=== PATIENT | male | born 1935 | race Caucasian/White ===

== ENCOUNTER 2017-11-19 17:48 | Inpatient (IN) | payer MEDICARE ==
[~2017-11-19] VITALS: Ht 175.3 cm; Wt 97.6 kg
[2017-11-19] MEDS ORDERED: SODIUM CHLORIDE 0.9% 500ML 500 ML IV STA (18:11)
[2017-11-19] MEDS ORDERED: ONDANSETRON HCL INJ 2 MG/ML VIAL IV STA (18:11)
[2017-11-19 18:54] LABS: BASOPHILS # (AUTO) 0.1 (0.0-0.1); BASOPHILS % 0.6 % (0.0-1.0); EOSINOPHILS # (AUTO) 0.4 (0.0-0.4); EOSINOPHILS % 2.7 % (0.0-6.0); HEMOGLOBIN 16.2 g/dL (14.0-18.0); LYMPHOCYTES % 13.1 % (18.0-39.1); MEAN CORPUSCULAR HEMOGLOBIN 30.6 pg (28-32); MEAN CORPUSCULAR HGB CONC 34.5 g/dL (31-35); MEAN CORPUSCULAR VOLUME 88.7 fL (81-99); MONOCYTES % 6.3 % (4.4-11.3); NEUTROPHILS # (AUTO) 11.8 (2.1-6.9); PLATELET COUNT 282 x10e3/uL (140-360); RED CELL DISTRIBUTION WIDTH 13.2 % (11.7-14.4)
[2017-11-19] MEDS ORDERED: DIATRIZOATE MEGL/DIATRIZOA SOD 30 ML BTL PO ONE (19:01)
--- NOTE | 2017-11-19 19:08 | Diagnostic Imaging Report ---
EXAMINATION: CHEST SINGLE (PORTABLE) INDICATION: Abdominal pain. Weakness COMPARISON: October 31, 2011 FINDINGS: TUBES and LINES: None. LUNGS: Lungs are well inflated. Mild chronic appearing changes in the lungs. There is no evidence of pneumonia or pulmonary edema. PLEURA: No pleural effusion or pneumothorax. HEART AND MEDIASTINUM: Calcification at the aortic arch. Heart normal in size. BONES AND SOFT TISSUES: No acute osseous lesion. Soft tissues are unremarkable. UPPER ABDOMEN: No free air under the diaphragm. IMPRESSION: No acute thoracic abnormality. Signed by: Dr. Quirino Escobar M.D. on 11/19/2017 7:04 PM
--- NOTE | 2017-11-19 19:14 | Diagnostic Imaging Report ---
Exam: Frontal radiograph of the abdomen History: Abdominal pain. Weakness. Findings: Numerous distended air-filled loops of bowel in the central abdomen worrisome for small bowel obstruction. Flowing syndesmophytes about the visualized portion of the spine and apparent partial ankylosis of the sacroiliac joints could be due to ankylosing spondylitis. No suspicious calcifications. Impression: Findings worrisome for small bowel obstruction. Findings discussed with Dr. Sellers by Dr. Escobar on November 19, 2017 at 7:10 PM Signed by: Dr. Quirino Escobar M.D. on 11/19/2017 7:10 PM
[2017-11-19 19:18] LABS: ALBUMIN 4.2 g/dL (3.5-5.0); ALBUMIN/GLOBULIN RATIO 1.2 (0.8-2.0); ANION GAP 20.4 mmol/L (8-16); CALCIUM 9.7 mg/dL (8.4-10.2); CREATININE, SERUM 2.25 mg/dL (0.72-1.25); POTASSIUM 4.4 mmol/L (3.5-5.1)
[2017-11-19 19:24] LABS: CREATINE KINASE MB 4.2 ng/mL (0-5.0)
[2017-11-19 19:27] LABS: BILIRUBIN,URINE NEGATIVE (NEGATIVE); COLOR,URINE YELLOW (YELLOW); KETONES,URINE NEGATIVE (NEGATIVE); LEUKOCYTE ESTERASE ,URINE NEGATIVE (NEGATIVE); NITRITE,URINE NEGATIVE (NEGATIVE); URINE UROBILINOGEN 0.2 mg/dL (0.2 - 1)
[2017-11-19 19:34] LABS: CLARITY,URINE SL CLOUDY (CLEAR); PROTEIN,URINE DIPSTICK TRACE (NEGATIVE)
[2017-11-19 19:44] LABS: EPITHELIAL CELLS,URINE FEW /LPF
--- NOTE | 2017-11-19 19:57 | Diagnostic Imaging Report ---
EXAM: CT Abdomen and Pelvis WITHOUT contrast INDICATION: Abdominal pain. Small bowel obstruction COMPARISON: Radiographs from the same day TECHNIQUE: Abdomen and pelvis were scanned utilizing a multidetector helical scanner from the lung base to the pubic symphysis without administration of IV contrast. Absence of intravenous contrast decreases sensitivity for detection of focal lesions and vascular pathology. Coronal and sagittal reformations were obtained. Routine protocol was performed. IV CONTRAST: None. ORAL CONTRAST: Water RADIATION DOSE: Total DLP: 848.07 mGy*cm Estimated effective dose: (DLP x 0.015 x size factor) mSv COMPLICATIONS: None FINDINGS: LINES and TUBES: None. LOWER THORAX: Moderate size hiatal hernia. HEPATOBILIARY: Hypodensities in the liver could be due to cysts. Several of these are too small to characterize. No biliary ductal dilation. GALLBLADDER: Possible small gallstone in the gallbladder neck region best seen on axial series 2 image 22. No wall thickening. SPLEEN: No splenomegaly. PANCREAS: No focal masses or ductal dilatation. ADRENALS: No adrenal nodules KIDNEYS/URETERS: No hydronephrosis. Several too small to characterize hypodensities in the kidneys could be due to small cysts. Bilateral perinephric fat stranding likely due to chronic medical renal disease. No renal stones. GI TRACT: Distended stomach and numerous distended fluid and air filled loops of small bowel most pronounced proximally consistent with small bowel obstruction. No definite lead point is seen. The colon is decompressed. Radiodense material is seen in the stomach and proximal small bowel. PELVIC ORGANS/BLADDER: Unremarkable. LYMPH NODES: No lymphadenopathy. VESSELS: Scattered vascular calcification. PERITONEUM / RETROPERITONEUM: No free air or fluid. BONES: Chronic appearing deformity involving the intervertebral disc and endplates at the L2/L3 level could be due to a prior infection. Flowing syndesmophytes in the spine and partial ankylosis of the sacroiliac joints could be due to ankylosing spondylitis. SOFT TISSUES: Unremarkable. IMPRESSION: 1. Distended stomach and numerous distended fluid and air filled loops of small bowel most pronounced proximally consistent with small bowel obstruction. No definite lead point is seen. The colon is decompressed Signed by: Dr. Quirino Escobar M.D. on 11/19/2017 7:54 PM
[2017-11-19] MEDS ORDERED: CEFOXITIN 1GM/ DEXTROSE 50ML ML IV SCH (20:15)
[2017-11-19] MEDS ORDERED: ONDANSETRON HCL INJ 2 MG/ML VIAL IV PRN (20:15)
[2017-11-19] MEDS ORDERED: LIDOCAINE VISC 2% SOLN 15 ML UDC ONE (20:31)
[2017-11-19] MEDS ORDERED: BENZOCAINE/TETRACAINE/BUTAMBEN AERO SPRAY 56 GM CAN ONE (20:31)
[2017-11-19] MEDS: SODIUM CHLORIDE 0.9% 1000ML 1,000 ML IV SCH (20:44)
[2017-11-19] MEDS: METRONIDAZOLE 500MG/NS 100ML 100 ML IV SCH (20:44)
--- OUTSIDE RECORDS SUMMARY | 2017-11-19 21:20 | XMS REPORT ---
Author Author [facility] Address Unknown Phone Unavailable Care Team Providers Care Manager Payment Name Role Phone MAGALI MORALES Unavailable Unavailable Problems This patient has no known problems. Allergies, Adverse Reactions, Alerts This patient has no known allergies or adverse reactions. Medications This patient has no known medications. Results Test Description Test Time Test Comments Text Results Atomic Results Result Comments CT ABDOMEN/PELVIS WO [place] [address] Patient Name: JOANNA CARTER MR #: [id number] : 1935 Age/Sex: 82/M Req #: [id number] Adm Physician: Ordered by: EARL ANDRADE ANALYST [employer]HEM[employer]OSPECTING Report #: [id number] Location: ER Room/Bed: Procedure: [id number] CT/CT ABDOMEN/PELVIS WO Exam Date: 11/19/17 Exam Time: 1924 REPORT STATUS: Signed EXAM: CT Abdomen and Pelvis WITHOUT contrast INDICATION: Abdominal pain. Small bowel obstruction COMPARISON: Radiographs from the same day TECHNIQUE: Abdomen and pelvis were scanned utilizing a multidetector helical scanner from the lung base to the pubic symphysis without administration of IV contrast. Absence of intravenous contrast decreases sensitivity for detection of focal lesions and vascular pathology. Coronal and sagittal reformations were obtained. Routine protocol was performed. IV CONTRAST: None. ORAL CONTRAST: Water RADIATION DOSE: Total DLP: 848.07 mGy*cm Estimated effective dose: (DLP x 0.015 x size factor) mSv COMPLICATIONS: None FINDINGS: LINES and TUBES: None. LOWER THORAX: Moderate size hiatal hernia. HEPATOBILIARY: Hypodensities in the liver could be due to cysts. Several of these are too small to characterize. No biliary ductal dilation. GALLBLADDER: Possible small gallstone in the gallbladder neck region best seen on axial series 2 image 22. No wall thickening. SPLEEN: No splenomegaly. PANCREAS: No focal masses or ductal dilatation. ADRENALS: No adrenal nodules KIDNEYS/URETERS: No hydronephrosis. Several too small to characterize hypodensities in the kidneys could be due to small cysts. Bilateral perinephric fat stranding likely due to chronic medical renal disease. No renal stones. GI TRACT: Distended stomach and numerous distended fluid and air filled loops of small bowel most pronounced proximally consistent with small bowel obstruction. No definite lead point is seen. The colon is decompressed. Radiodense material is seen in the stomach and proximal small bowel. PELVIC ORGANS/BLADDER: Unremarkable. LYMPH NODES: No lymphadenopathy. VESSELS: Scattered vascular calcification. PERITONEUM / RETROPERITONEUM: No free air or fluid. BONES: Chronic appearing deformity involving the intervertebral disc and endplates at the L2/ L3 level could be due to a prior infection. Flowing syndesmophytes in the spine and partial ankylosis of the sacroiliac joints could be due to ankylosing spondylitis. SOFT TISSUES: Unremarkable. IMPRESSION: 1. Distended stomach and numerous distended fluid and air filled loops of small bowel most pronounced proximally consistent with small bowel obstruction. No definite lead point is seen. The colon is decompressed Signed by: Dr. Quirino Escobar M.D. on 11/19/2017 7:54 PM Dictated By: QUIRINO ESCOBAR MD, MD 53 Transcribed By: GABRIELA on 11/19/171953 COPY TO: EARL ANDRADE NP CHEST SINGLE (PORTABLE) [place] [address] Patient Name: JOANNA CARTER MR #: [id number] : 1935 Age/Sex: 82/M Req #: [id number] Adm Physician: Ordered by: EARL ANDRADE ANALYST [employer]HEM[employer] PROSPECTING Report #: [id number] Location: ER Room/Bed: Procedure: [id number] DX/CHEST SINGLE (PORTABLE) Exam Date: 11/19/17 Exam Time: 1845 REPORT STATUS: Signed EXAMINATION: CHEST SINGLE (PORTABLE) INDICATION: Abdominal pain. Weakness COMPARISON: October 31, 2011 FINDINGS: TUBES and LINES: None. LUNGS: Lungs are well inflated. Mild chronic appearing changes in the lungs. There is no evidence of pneumonia or pulmonary edema. PLEURA: No pleural effusion or pneumothorax. HEART AND MEDIASTINUM: Calcification at the aortic arch. Heart normal in size. BONES AND SOFT TISSUES: No acute osseous lesion. Soft tissues are unremarkable. UPPER ABDOMEN: No free air under the diaphragm. IMPRESSION: No acute thoracic abnormality. Signed by: Dr. Quirino Escobar M.D. on 11/19/2017 7:04 PM Dictated By: QUIRINO ESCOBAR MD, MD 03 Transcribed By: GABRIELA on 11/19/171903 COPY TO: EARL ANDRADE ANALYST GEOCHEMICAL PROSPECTING [facility] ([place] [address] Patient Name: JOANNA CARTER MR #: [id number] : 1935 Age/Sex: 82/M Req #: [id number] Adm Physician: Ordered by: EARL ANDRADE ANALYST [employer]HEM[employer] PROSPECTING Report #: [id number] Location: ER Room/Bed: Procedure: [id number] DX/ABDOMEN-1VIEW (KUB) Exam Date: 11/19/17 Exam Time: 1845 REPORT STATUS: Signed Exam: Frontal radiograph of the abdomen History: Abdominal pain. Weakness. Findings : Numerous distended air-filled loops of bowel in the central abdomen worrisome for small bowel obstruction. Flowing syndesmophytes about the visualized portion of the spine and apparent partial ankylosis of the sacroiliac joints could be due to ankylosing spondylitis. No suspicious calcifications. Impression: Findings worrisome for small bowel obstruction. Findings discussed with Dr. Sellers by Dr. Escobar on November 19, 2017 at 7:10 PM Signed by: Dr. Quirino Escobar M.D. on 11/19 7:10 PM Dictated By: QUIRINO ESCOBAR MD, MD 09 Transcribed By: GABRIELA on 11/19/171909 COPY TO: EARL ANDRADE NP
[2017-11-19 22:15] VITALS: BP 168/84
[2017-11-19] MEDS: MORPHINE SULFATE 2 MG/ML SYR IV PRN (23:00)
[2017-11-19] MEDS: CEFOXITIN SOD 1 GM VIAL IV SCH (23:23)
[2017-11-20] MEDS: METRONIDAZOLE 500MG/NS 100ML 100 ML IV SCH ×4 (00:07→18:01)
[2017-11-20] MEDS ORDERED: ADVAIR 250-501 EACH INH (00:19)
[2017-11-20] MEDS ORDERED: TRIAMTERENE-HCTZ1 EA PO (00:19)
[2017-11-20] MEDS ORDERED: SIMVASTATIN40 MG PO (00:19)
[2017-11-20] MEDS ORDERED: ASPIR 8181 MG PO (00:19)
[2017-11-20] MEDS ORDERED: FENOFIBRATE160 MG PO (00:19)
[2017-11-20] MEDS ORDERED: LUMIGAN2.5 M1 OP (00:19)
[2017-11-20] MEDS ORDERED: LISINOPRIL10 MG PO (00:19)
[2017-11-20 04:00] VITALS: BP 152/67
[2017-11-20] MEDS: CEFOXITIN SOD 1 GM VIAL IV SCH ×3 (05:17→21:33)
[2017-11-20] MEDS: SODIUM CHLORIDE 0.9% 1000ML 1,000 ML IV SCH ×3 (05:17→18:01)
[2017-11-20] MEDS ORDERED: CHLORASEPTIC SPRAY 177 ML BTL MM PRN (06:15)
[2017-11-20 06:32] LABS: BASOPHILS % 0.3 % (0.0-1.0); HEMOGLOBIN 15.1 g/dL (14.0-18.0); LYMPHOCYTES # (AUTO) 0.9 (1.0-3.2); LYMPHOCYTES % 8.1 % (18.0-39.1); MEAN CORPUSCULAR HEMOGLOBIN 30.6 pg (28-32); MEAN CORPUSCULAR HGB CONC 34.3 g/dL (31-35); MEAN CORPUSCULAR VOLUME 89.2 fL (81-99); MONOCYTES # (AUTO) 0.8 (0.2-0.8); MONOCYTES % 6.7 % (4.4-11.3); NEUTROPHILS # (AUTO) 9.5 (2.1-6.9); NEUTROPHILS % 84.6 % (38.7-80.0); PLATELET COUNT 242 x10e3/uL (140-360); RED BLOOD COUNT 4.93 x10e6/uL (4.3-5.7); RED CELL DISTRIBUTION WIDTH 13.2 % (11.7-14.4)
[2017-11-20] MEDS: PANTOPRAZOLE 40 MG 10ML VIAL IV SCH (06:50)
[2017-11-20 06:53] LABS: ALBUMIN 3.4 g/dL (3.5-5.0); ALBUMIN/GLOBULIN RATIO 1.2 (0.8-2.0); ANION GAP 17.1 mmol/L (8-16); CALCIUM 9.1 mg/dL (8.4-10.2); CREATININE, SERUM 2.51 mg/dL (0.72-1.25); POTASSIUM 4.1 mmol/L (3.5-5.1)
--- NOTE | 2017-11-20 07:40 | Consultation ---
DATE OF CONSULTATION: November 20, 2017 The patient is an 82-year-old male who presents with complaints of abdominal pain, which started yesterday. Says the pain was diffuse, crampy pain. Had some nausea. Yesterday, had a normal bowel movement yesterday, but nothing since. He is not passing any flatus since yesterday. He came to the emergency room where evaluation with CT of the abdomen and pelvis and abdominal x-ray revealed findings most suggestive of small-bowel obstruction. Also, found to have a question of one gallstone seen. Patient also had associated back pain. He has not had similar pains in the past. He has not had previous abdominal surgery. Says the pain is somewhat less today. PAST MEDICAL HISTORY: Significant for hypertension, hypercholesterolemia, previous TIA. He has had previous carpal tunnel surgery, left knee surgery, sinus surgery, and TURP. ALLERGIES: HE HAS NO KNOWN ALLERGIES. FAMILY HISTORY: Noncontributory. SOCIAL HISTORY: The patient does not smoke cigarettes or drink alcohol. REVIEW OF SYSTEMS: Is as stated above, otherwise was negative. He has had no fever. No weight loss. PHYSICAL EXAMINATION GENERAL: The patient is awake, alert and in no distress. VITALS: Normal. He is not tachycardic. Blood pressure is normal. HEENT: Reveals no scleral icterus. NECK: Has no masses. LUNGS: Equal breath sounds are clear bilaterally. CARDIAC: Regular rate and rhythm with no murmur. ABDOMEN: Distended with mild diffuse tenderness with no signs of peritonitis. No mass. EXTREMITIES: Have no edema. NEUROLOGIC: Grossly intact. LAB TESTS: The white blood count on arrival was 15.3. Repeat is 11.2. Hemoglobin and hematocrit are normal. Chemistries on arrival revealed elevated BUN of 30, creatinine 2.25, bicarbonate level was normal. Amylase and lipase are normal. Liver function tests are essentially normal. ASSESSMENT: This is an 82-year-old male with findings most suggestive of intestinal obstruction. There are no signs of ischemic bowel at this time. No signs of peritonitis. At this point, recommend keeping the patient n.p.o. and on IV fluids with a nasogastric tube in place. Abdominal x-rays to be repeated. If his symptoms do not resolve, he may require surgery. This was explained to the patient. Thank you for asking me to see Mr. Munoz. Job#: [id number] RI
[2017-11-20 09:58] VITALS: BP 135/62
[2017-11-20 10:46] VITALS: BP 135/62
--- NOTE | 2017-11-20 10:55 | Diagnostic Imaging Report ---
PROCEDURE:ABDOMEN COMP INCL UPR OR DECUB TECHNIQUE:Supine and uprightviews of the abdomen INDICATION:Small bowel obstruction COMPARISON:Patients [facility], CT, CT ABDOMEN/PELVIS WO, 11/19/2017, 19:31. FINDINGS:A nasogastric tube has been placed with its tip below the diaphragm. Air-fluid levels with dilated loops of proximal small bowel are again noted. Relative paucity of large bowel gas. No free air. CONCLUSION:Continued evidence of small bowel obstruction. Anibal Gaston D.O. Dictated by: Anibal Gaston D.O. on 11/20/2017 at 10:55 Electronically approved by: Anibal Gaston D.O. on 11/20/2017 at 10:55
--- NOTE | 2017-11-20 14:39 | History and Physical ---
PRIMARY CARE PROVIDER: Dr. Bashir Peng. CHIEF COMPLAINT: Abdominal pain, nausea, vomiting. HISTORY OF PRESENT ILLNESS: Mr. Munoz is an 82-year-old gentleman who presents with 2 days of abdominal pain, distention, nausea, vomiting. REVIEW OF SYSTEMS: He denies fever, chills or weight loss. He denies sinus congestion or sore throat. He denies chest pain or palpitations. He denies shortness of breath, wheezing or cough. He has abdominal pain with nausea and vomiting. He denies diarrhea. He may be a little constipated. He denies dysuria or flank pain. He denies rash or pruritus. He denies joint pain or swelling. He denies bleeding or bruising. He denies headache, vertigo or loss of consciousness. He denies depression, agitation, homicidal or suicidal ideation. PAST MEDICAL HISTORY: Significant for longstanding hypertension, hypercholesterolemia, glaucoma. He has had a previous TIA. He also has COPD. His medications include: Aspirin 81 mg daily. Advair Diskus twice daily. Lisinopril 30 mg daily. Zocor 40 mg at bedtime. Dyazide 37.5/25 mg daily. Fenofibrate 160 mg daily. Lumigan drops for glaucoma three times a day. He has a history carpal tunnel surgery, he has had left knee arthroscopy, and he has had a transurethral resection of the prostate. ALLERGIES: HE HAS NO KNOWN DRUG ALLERGIES. FAMILY HISTORY: Remarkable for hypertension. SOCIAL HISTORY: The patient is . [place]ian is his primary language. He does not smoke, drink or use illegal drugs, and he is generally independently functioning. PHYSICAL EXAM: PSYCHIATRIC: He is alert and oriented x3 with normal mood and affect. CONSTITUTIONAL: He has a normal body habitus. Is in no acute distress. VITAL SIGNS: Blood pressure 135/62. Pulse 86 and regular. Respiratory rate 18. O2 sat 93% on room air. Temperature 98.6. HEENT: His head is atraumatic. His eyes are anicteric. Ears and nares are without erythema or discharge. He does have a nasogastric tube in place. His oropharynx is clear. NECK: Is supple with no mass or thyromegaly. LYMPHATIC SYSTEM: He has no palpable cervical, axillary or inguinal adenopathy. CARDIOVASCULAR: His heart has a regular rate and rhythm without murmur or extra heart sound. He has no carotid bruit. He has no peripheral edema. He has palpable dorsal pedal pulses. RESPIRATORY: Lungs are clear to auscultation and percussion with normal respiratory effort. GASTROINTESTINAL: His abdomen is soft. It is mildly distended. It has some decreased bowel sounds. There is no hepatosplenomegaly. There is some mild diffuse tenderness without rebound or guarding. CUTANEOUS: His skin is warm and dry to the touch with no rash or skin breakdown. MUSCULOSKELETAL: His joints are in normal alignment without erythema or swelling. He has no calf tenderness. NEUROLOGIC: Exam is nonfocal with intact cranial nerves and no motor or sensory deficits. DIAGNOSTIC STUDIES: Chest x-ray shows no acute disease. KUB shows a small-bowel obstruction. CT scan the abdomen confirms that with dilated proximal small-bowel loops, unable to identify a clear transition point but the colon is decompressed. Repeat KUB this morning is unchanged, still shows evidence of small-bowel obstruction. His UA is clear. His BNP 50.5. CBC shows a white count of 15.31 with 77% neutrophils, 13% lymphocytes. Hemoglobin 16.2, hematocrit 47.0 and platelet count today 282,000. His chemistry profile shows normal electrolytes. CO2 23. Creatinine 2.25, BUN 30 for a GFR of 28. Glucose 117. Calcium 9.7. His amylase is 93. Lipase is 10. Transaminases, bilirubin, alk phos are normal. His UA is clear. IMPRESSION AND PLAN: 1. Small-bowel obstruction. The patient will be kept n.p.o. He has a nasogastric tube in place for decompression. He will be getting IV fluids, serial abdominal exams and x-rays. Surgery has been consulted and is following the case, and the patient is on IV Mefoxin empirically. 2. 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 There are no previous labs to establish baseline renal function. After overnight hydration, there was no improvement with his GFR; so, presumably this is chronic kidney disease stage 4. As the patient is n.p.o., will use IV hydralazine and IV enalapril as needed every 4 hours to control his blood pressure while he is n.p.o. 3. Acute kidney injury versus chronic kidney disease stage 4. The patient is getting IV fluid hydration. Will monitor renal function and volume status. 4. For prophylaxis, the patient is on Lovenox for DVT prophylaxis and Protonix for GI prophylaxis. Job#: [id number] EV
[2017-11-20 17:50] VITALS: BP 136/63
[2017-11-20] MEDS: ENOXAPARIN 30 MG/0.3 ML SYR SC SCH (18:01)
[2017-11-20 20:55] VITALS: BP 150/67
[2017-11-20 21:11] VITALS: BP 147/68
[2017-11-20] MEDS: BIMATOPROST(OPTH) 2.5 ML BOTTLE OP SCH (21:33)
[2017-11-21] VITALS (7 sets, daily range): BP systolic 140–167; BP diastolic 59–77
--- NOTE | 2017-11-21 06:02 | Diagnostic Imaging Report ---
EXAM: ABDOMEN COMP INCL UPR or DECUB, supine and erect INDICATION: Small bowel obstruction COMPARISON: AP view of the chest fibula were 12/05/2018 FINDINGS: LINES/TUBES: None BOWEL PATTERN: Persistent dilated loops of small bowel with air-fluid levels. Air is seen in the colon and rectum. SOFT TISSUES: No abnormal calcifications. LUNG BASES: Bibasilar atelectasis BONES: No acute findings. IMPRESSION: Persistent partial small bowel obstruction. Signed by: Dr. Saniya Silverio M.D. on 11/21/2017 5:58 AM
[2017-11-21] MEDS: METRONIDAZOLE 500MG/NS 100ML 100 ML IV SCH ×4 (06:29→17:50)
[2017-11-21] MEDS: SODIUM CHLORIDE 0.9% 1000ML 1,000 ML IV SCH ×4 (06:38→20:53)
[2017-11-21] MEDS: CEFOXITIN SOD 1 GM VIAL IV SCH ×3 (06:38→21:33)
[2017-11-21 07:12] LABS: HEMATOCRIT 40.3 % (38.2-49.6); HEMOGLOBIN 13.1 g/dL (14.0-18.0); MEAN CORPUSCULAR HEMOGLOBIN 29.8 pg (28-32); MEAN CORPUSCULAR HGB CONC 32.5 g/dL (31-35); MEAN CORPUSCULAR VOLUME 91.8 fL (81-99); PLATELET COUNT 217 x10e3/uL (140-360); RED BLOOD COUNT 4.39 x10e6/uL (4.3-5.7); RED CELL DISTRIBUTION WIDTH 13.4 % (11.7-14.4)
[2017-11-21 07:30] LABS: ANION GAP 13.6 mmol/L (8-16); CALCIUM 8.4 mg/dL (8.4-10.2); CREATININE, SERUM 2.38 mg/dL (0.72-1.25); MAGNESIUM 1.5 MG/DL (1.3-2.1); PHOSPHORUS 1.9 MG/DL (2.3-4.7); POTASSIUM 3.6 mmol/L (3.5-5.1)
[2017-11-21 07:45] LABS: THYROID STIMULATING HORMONE 0.903 uIU/mL (0.350-4.940)
[2017-11-21] MEDS: PANTOPRAZOLE 40 MG 10ML VIAL IV SCH (08:38)
[2017-11-21] MEDS: ENOXAPARIN 30 MG/0.3 ML SYR SC SCH (16:41)
[2017-11-21] MEDS: BIMATOPROST(OPTH) 2.5 ML BOTTLE OP SCH (20:34)
[2017-11-22] MEDS: MORPHINE SULFATE 2 MG/ML SYR IV PRN (01:09)
[2017-11-22 01:17] VITALS: BP 165/68
[2017-11-22] MEDS: HYDRALAZINE HCL 20 MG/ML VIAL IV PRN ×3 (05:05→22:40)
[2017-11-22] MEDS: CEFOXITIN SOD 1 GM VIAL IV SCH ×3 (05:37→22:58)
[2017-11-22 06:04] VITALS: BP 180/92
[2017-11-22 06:04] LABS: BASOPHILS % 0.7 % (0.0-1.0); EOSINOPHILS # (AUTO) 0.2 (0.0-0.4); EOSINOPHILS % 5.1 % (0.0-6.0); HEMATOCRIT 39.6 % (38.2-49.6); HEMOGLOBIN 13.1 g/dL (14.0-18.0); LYMPHOCYTES # (AUTO) 1.2 (1.0-3.2); LYMPHOCYTES % 27.3 % (18.0-39.1); MEAN CORPUSCULAR HEMOGLOBIN 29.8 pg (28-32); MEAN CORPUSCULAR HGB CONC 33.1 g/dL (31-35); MEAN CORPUSCULAR VOLUME 90.2 fL (81-99); MONOCYTES # (AUTO) 0.6 (0.2-0.8); MONOCYTES % 13.5 % (4.4-11.3); NEUTROPHILS # (AUTO) 2.4 (2.1-6.9); PLATELET COUNT 221 x10e3/uL (140-360); RED BLOOD COUNT 4.39 x10e6/uL (4.3-5.7); RED CELL DISTRIBUTION WIDTH 13.2 % (11.7-14.4)
[2017-11-22 06:30] LABS: ANION GAP 14.6 mmol/L (8-16); CALCIUM 8.4 mg/dL (8.4-10.2); CREATININE, SERUM 1.97 mg/dL (0.72-1.25); MAGNESIUM 1.7 MG/DL (1.3-2.1); POTASSIUM 3.6 mmol/L (3.5-5.1)
[2017-11-22 08:00] VITALS: BP 164/75
[2017-11-22] MEDS: PANTOPRAZOLE 40 MG 10ML VIAL IV SCH (08:13)
[2017-11-22] MEDS: SODIUM CHLORIDE 0.9% 1000ML 1,000 ML IV SCH ×4 (08:13→22:58)
[2017-11-22] MEDS: AMLODIPINE BESYLATE 10 MG TAB PO SCH (11:15)
[2017-11-22 12:00] VITALS: BP 195/93
--- NOTE | 2017-11-22 12:32 | Diagnostic Imaging Report ---
PROCEDURE:ABDOMEN COMP INCL UPR OR DECUB TECHNIQUE:Flat and erect abdomen INDICATION:Small bowel obstruction COMPARISON:11/21/2017 FINDINGS:There is an NG tube with its tip below the diaphragm. No change in the degree of dilatation of the small bowel loops. There are small bowel air-fluid levels present. Again noted is air within the rectum. No free air. CONCLUSION:Persistent small bowel obstruction. Anibal Gaston D.O. Dictated by: Anibal Gaston D.O. on 11/22/2017 at 12:32 Electronically approved by: Anibal Gaston D.O. on 11/22/2017 at 12:32
[2017-11-22 13:57] VITALS: BP 178/79
[2017-11-22] MEDS ORDERED: MORPHINE SULFATE INJ 10 MG/ML ONE (14:51)
[2017-11-22] MEDS ORDERED: FENTANYL CITRATE/PF 100MCG/2 ML INJ ONE (14:51)
[2017-11-22] MEDS ORDERED: MIDAZOLAM HCL 2 MG/2 ML VIAL ONE (14:51)
[2017-11-22] MEDS ORDERED: SODIUM CHLORIDE 0.9% 50ML 50 ML ONE (14:52)
[2017-11-22] MEDS ORDERED: SODIUM CHLORIDE 0.9% INJ 10 ML VIAL ONE (14:52)
[2017-11-22] MEDS ORDERED: BUPIVACAINE HCL 0.5% 10ML MPF VIAL INJ ONE (16:25)
[2017-11-22] MEDS ORDERED: MORPHINE SULFATE 2 MG/ML SYR IV PRN ×2 (17:00→17:15)
[2017-11-22] MEDS ORDERED: ONDANSETRON HCL INJ 2 MG/ML VIAL IV PRN (17:00)
[2017-11-22] MEDS: ENOXAPARIN 30 MG/0.3 ML SYR SC SCH (17:00)
[2017-11-22] MEDS ORDERED: SUGAMMADEX SODIUM 200 MG/2 ML VIAL IV ONE (17:35)
[2017-11-22] MEDS ORDERED: ONDANSETRON HCL INJ 2 MG/ML VIAL ONE (17:56)
[2017-11-22] MEDS ORDERED: ROCURONIUM BROMIDE 10 MG/ML 5ML VIAL ONE (17:56)
[2017-11-22] MEDS ORDERED: SUCCINYLCHOLINE 200 MG/10 ML SYR ONE (17:56)
[2017-11-22] MEDS ORDERED: NEOSTIGMINE 5 MG/5ML SYR ONE (17:56)
[2017-11-22] MEDS ORDERED: GLYCOPYRROLATE INJ 1MG/ 5 ML SYR ONE (17:56)
[2017-11-22] MEDS ORDERED: PROPOFOL IV EMULSION 10 MG/ML 20 ML VIAL ONE (17:56)
[2017-11-22] MEDS ORDERED: LIDOCAINE HCL 2% LOCAL INJ 5 ML SDV VIAL INJ ONE (17:56)
[2017-11-22] MEDS ORDERED: DEXAMETHASONE SOD PHOS INJ 4 MG/ML VIAL ONE (17:56)
[2017-11-22] MEDS ORDERED: DESFLURANE 240 ML BTL INH ONE (17:56)
--- NOTE | 2017-11-22 18:08 | Operative Report ---
DATE OF PROCEDURE: November 22, 2017 PREOPERATIVE DIAGNOSIS: Small bowel obstruction. POSTOPERATIVE DIAGNOSIS: Small bowel obstruction. PROCEDURES PERFORMED: 1. Diagnostic laparoscopy. 2. Laparoscopic lysis of adhesions. 3. Release of small bowel obstruction. PHOTOLITHOGRAPHIC STRIPPER: None. ANESTHESIA: General endotracheal. INDICATIONS AND FINDINGS: The patient is an 82-year-old male admitted to the hospital with abdominal pain with nausea and vomiting. Workup revealed small bowel obstruction. Surgery based on a dilated proximal bowel collapsed distal bowel with a single adhesive band causing the obstruction. Bowel all appeared viable. There was no mass seen. No evidence of tumor. TECHNIQUE: After adequate general endotracheal anesthesia with the patient in the supine position, the abdomen was prepped and draped in sterile fashion with David solution. Skin in the umbilicus was infiltrated with 1/2 percent Marcaine. Incision made in the umbilicus. Abdominal wall was elevated and Veress needle was introduced. Pneumoperitoneum was then created. A 10 mm trocar and cannula was then passed through the umbilical wound. Laparoscopic camera was introduced. Initial laparoscopy revealed dilated small bowel. The colon appeared normal. There was no free fluid seen. A 5 mm trocar and cannula was placed in the left upper quadrant and a 5 mm trocar and cannula placed in the left lower quadrant. The small bowel was identified proximally where it was dilated. It was then followed distally and there was a transition point. There was omentum adherent over this area causing obstruction. At the omentum was mobilized it was freed and adhesive band divided freeing the small bowel completely. Distal bowel was noted to be collapsed. Distal bowel was followed all the way to the cecum which appeared normal. The peritoneal cavity was irrigated with saline and inspected for hemostasis which was seen to be adequate. Instruments and cannulas were then removed. Pneumoperitoneum was evacuated. Wounds were then closed. Fascia in the umbilical closed with 0 Vicryl. Skin to all wounds closed with luisa. Sterile dressings applied to each wound. Patient tolerated the procedure well. Estimated blood loss was 5 mL. There were no complications. All counts were correct. Patient was taken to the recovery room in satisfactory condition. Job#: [id number] cc:GENESIS CERDA MD
[2017-11-22 20:00] VITALS: BP 163/73
[2017-11-22] MEDS ORDERED: LORAZEPAM 1 MG TAB PO PRN (21:00)
[2017-11-22] MEDS: SODIUM CHLORIDE 0.9% 250ML IRRIG IR SCH (22:00)
[2017-11-22] MEDS: BIMATOPROST(OPTH) 2.5 ML BOTTLE OP SCH (22:00)
[2017-11-23] VITALS (7 sets, daily range): BP systolic 144–170; BP diastolic 68–79
[2017-11-23] MEDS: LORAZEPAM INJ 2 MG/ML VIAL IV PRN ×2 (01:27→21:36)
[2017-11-23] MEDS: SODIUM CHLORIDE 0.9% 250ML IRRIG IR SCH ×6 (02:00→21:27)
[2017-11-23] MEDS: SODIUM CHLORIDE 0.9% 1000ML 1,000 ML IV SCH (05:54)
[2017-11-23 06:07] LABS: BASOPHILS % 0.4 % (0.0-1.0); HEMATOCRIT 39.2 % (38.2-49.6); HEMOGLOBIN 13.2 g/dL (14.0-18.0); LYMPHOCYTES # (AUTO) 0.8 (1.0-3.2); LYMPHOCYTES % 14.2 % (18.0-39.1); MEAN CORPUSCULAR HEMOGLOBIN 30.4 pg (28-32); MEAN CORPUSCULAR HGB CONC 33.7 g/dL (31-35); MEAN CORPUSCULAR VOLUME 90.3 fL (81-99); MONOCYTES # (AUTO) 0.7 (0.2-0.8); MONOCYTES % 13.3 % (4.4-11.3); NEUTROPHILS # (AUTO) 3.7 (2.1-6.9); PLATELET COUNT 272 x10e3/uL (140-360); RED BLOOD COUNT 4.34 x10e6/uL (4.3-5.7); RED CELL DISTRIBUTION WIDTH 13.2 % (11.7-14.4)
[2017-11-23] MEDS: CEFOXITIN SOD 1 GM VIAL IV SCH ×3 (06:22→21:28)
[2017-11-23 06:32] LABS: ANION GAP 16.2 mmol/L (8-16); CALCIUM 8.5 mg/dL (8.4-10.2); CREATININE, SERUM 1.72 mg/dL (0.72-1.25); POTASSIUM 4.2 mmol/L (3.5-5.1)
[2017-11-23] MEDS: AMLODIPINE BESYLATE 10 MG TAB PO SCH (08:37)
[2017-11-23] MEDS: PANTOPRAZOLE 40 MG 10ML VIAL IV SCH (08:37)
[2017-11-23] MEDS ORDERED: DEXTROSE 5%/0.45% SOD CHL 1,000 ML IV ONE (09:45)
[2017-11-23] MEDS: HYDRALAZINE HCL 20 MG/ML VIAL IV PRN (12:47)
[2017-11-23] MEDS: ENOXAPARIN 30 MG/0.3 ML SYR SC SCH (16:45)
[2017-11-23] MEDS: BIMATOPROST(OPTH) 2.5 ML BOTTLE OP SCH (21:50)
[2017-11-24] VITALS (7 sets, daily range): BP systolic 167–189; BP diastolic 70–91
[2017-11-24] MEDS: HYDRALAZINE HCL 20 MG/ML VIAL IV PRN ×3 (00:39→16:34)
[2017-11-24] MEDS: SODIUM CHLORIDE 0.9% 250ML IRRIG IR SCH ×7 (02:00→21:27)
[2017-11-24] MEDS: CEFOXITIN SOD 1 GM VIAL IV SCH ×3 (06:18→21:26)
[2017-11-24 06:51] LABS: BASOPHILS # (AUTO) 0.1 (0.0-0.1); BASOPHILS % 0.9 % (0.0-1.0); EOSINOPHILS # (AUTO) 0.2 (0.0-0.4); EOSINOPHILS % 2.7 % (0.0-6.0); HEMATOCRIT 39.1 % (38.2-49.6); HEMOGLOBIN 13.1 g/dL (14.0-18.0); LYMPHOCYTES # (AUTO) 1.3 (1.0-3.2); LYMPHOCYTES % 18.7 % (18.0-39.1); MEAN CORPUSCULAR HEMOGLOBIN 30.3 pg (28-32); MEAN CORPUSCULAR HGB CONC 33.5 g/dL (31-35); MEAN CORPUSCULAR VOLUME 90.5 fL (81-99); MONOCYTES # (AUTO) 0.9 (0.2-0.8); MONOCYTES % 13.4 % (4.4-11.3); NEUTROPHILS # (AUTO) 4.2 (2.1-6.9); NEUTROPHILS % 62.8 % (38.7-80.0); PLATELET COUNT 292 x10e3/uL (140-360); RED BLOOD COUNT 4.32 x10e6/uL (4.3-5.7); RED CELL DISTRIBUTION WIDTH 13.3 % (11.7-14.4)
[2017-11-24 07:15] LABS: ANION GAP 13.4 mmol/L (8-16); CALCIUM 8.7 mg/dL (8.4-10.2); CREATININE, SERUM 1.54 mg/dL (0.72-1.25); POTASSIUM 3.4 mmol/L (3.5-5.1)
[2017-11-24] MEDS: PANTOPRAZOLE 40 MG 10ML VIAL IV SCH (08:23)
[2017-11-24] MEDS: AMLODIPINE BESYLATE 10 MG TAB PO SCH (08:23)
[2017-11-24] MEDS ORDERED: ONDANSETRON HCL INJ 2 MG/ML VIAL IV PRN (10:15)
[2017-11-24] MEDS ORDERED: POTASSIUM CHLORIDE 20MEQ/100ML 100 ML IV ONE (10:15)
[2017-11-24] MEDS: NIFEDIPINE CR 30 MG TAB PO SCH (11:00)
[2017-11-24] MEDS ORDERED: POTASSIUM CHLORIDE 20 MEQ in SODIUM CHLORIDE 0.9% 90 ML IV NR (11:30)
[2017-11-24] MEDS: DEXTROSE 5%/0.9% SOD CHL 1,000 ML IV SCH (16:12)
[2017-11-24] MEDS: ENOXAPARIN 30 MG/0.3 ML SYR SC SCH (17:09)
--- NOTE | 2017-11-24 17:52 | Diagnostic Imaging Report ---
EXAM: Abdomen 2 Views INDICATION: \S\distended abdomen \[id number] \S\[id number] COMPARISON: KUB from 11/22/[address] abdomen and pelvis from 11/19/2017 FINDINGS: NG/OG tube with tip overlying the proximal gastric body and sidehole at the level of the gastroesophageal junction, recommend advancement. Moderate of stool in the colon. Interval mildly decreased distention of the small bowel. No renal calculi. No abnormal soft tissue masses. Moderate degenerative changes in the lumbar spine and pelvis. Sheldon overlying the abdomen at midline. IMPRESSION: Decreased distention of the small bowel when compared to 11/22/2017. Signed by: Dr. Nusrat Harmon M.D. on 11/24/2017 5:48 PM
[2017-11-24] MEDS: LORAZEPAM INJ 2 MG/ML VIAL IV PRN ×2 (18:36→22:58)
[2017-11-24] MEDS: BIMATOPROST(OPTH) 2.5 ML BOTTLE OP SCH (21:00)
[2017-11-24] MEDS: ENALAPRILAT IV INJ 1.25 MG/ML VIAL IV PRN (21:27)
[2017-11-25] VITALS (8 sets, daily range): BP systolic 151–187; BP diastolic 74–89
[2017-11-25] MEDS: SODIUM CHLORIDE 0.9% 250ML IRRIG IR SCH ×6 (00:20→21:37)
[2017-11-25] MEDS: HYDRALAZINE HCL 20 MG/ML VIAL IV PRN ×2 (01:25→07:48)
[2017-11-25] MEDS: CEFOXITIN SOD 1 GM VIAL IV SCH ×3 (05:07→21:37)
[2017-11-25] MEDS: ENALAPRILAT IV INJ 1.25 MG/ML VIAL IV PRN ×2 (05:07→16:20)
[2017-11-25 07:18] LABS: BASOPHILS # (AUTO) 0.1 (0.0-0.1); EOSINOPHILS # (AUTO) 0.3 (0.0-0.4); EOSINOPHILS % 3.3 % (0.0-6.0); HEMATOCRIT 40.3 % (38.2-49.6); HEMOGLOBIN 13.3 g/dL (14.0-18.0); LYMPHOCYTES # (AUTO) 1.4 (1.0-3.2); LYMPHOCYTES % 17.8 % (18.0-39.1); MONOCYTES % 12.4 % (4.4-11.3); NEUTROPHILS # (AUTO) 5.1 (2.1-6.9); NEUTROPHILS % 63.5 % (38.7-80.0); PLATELET COUNT 306 x10e3/uL (140-360); RED BLOOD COUNT 4.43 x10e6/uL (4.3-5.7); RED CELL DISTRIBUTION WIDTH 13.5 % (11.7-14.4)
[2017-11-25] MEDS: PANTOPRAZOLE 40 MG 10ML VIAL IV SCH (07:42)
[2017-11-25 07:44] LABS: ANION GAP 12.3 mmol/L (8-16); CALCIUM 8.6 mg/dL (8.4-10.2); CREATININE, SERUM 1.63 mg/dL (0.72-1.25); POTASSIUM 3.3 mmol/L (3.5-5.1)
[2017-11-25] MEDS ORDERED: POTASSIUM CHLORIDE 20MEQ/100ML 100 ML IV ONE (09:50)
[2017-11-25] MEDS: DEXTROSE 5%/0.9% SOD CHL 1,000 ML IV SCH (13:15)
[2017-11-25] MEDS: ENOXAPARIN 30 MG/0.3 ML SYR SC SCH (16:20)
[2017-11-25] MEDS ORDERED: HYDROCODONE/APAP 5MG-325MG TAB PO PRN (16:45)
[2017-11-25] MEDS: BIMATOPROST(OPTH) 2.5 ML BOTTLE OP SCH (21:36)
[2017-11-25] MEDS: LORAZEPAM INJ 2 MG/ML VIAL IV PRN (22:10)
[2017-11-26] VITALS (7 sets, daily range): BP systolic 151–182; BP diastolic 72–97
[2017-11-26] MEDS: SODIUM CHLORIDE 0.9% 250ML IRRIG IR SCH ×2 (02:00→06:00)
[2017-11-26] MEDS: CEFOXITIN SOD 1 GM VIAL IV SCH ×3 (06:16→22:48)
[2017-11-26 07:13] LABS: BASOPHILS # (AUTO) 0.1 (0.0-0.1); BASOPHILS % 1.2 % (0.0-1.0); EOSINOPHILS # (AUTO) 0.5 (0.0-0.4); EOSINOPHILS % 6.6 % (0.0-6.0); HEMATOCRIT 42.9 % (38.2-49.6); LYMPHOCYTES # (AUTO) 2.5 (1.0-3.2); LYMPHOCYTES % 30.7 % (18.0-39.1); MEAN CORPUSCULAR HEMOGLOBIN 30.1 pg (28-32); MEAN CORPUSCULAR HGB CONC 32.6 g/dL (31-35); MEAN CORPUSCULAR VOLUME 92.3 fL (81-99); MONOCYTES # (AUTO) 0.7 (0.2-0.8); MONOCYTES % 9.1 % (4.4-11.3); NEUTROPHILS % 49.6 % (38.7-80.0); PLATELET COUNT 359 x10e3/uL (140-360); RED BLOOD COUNT 4.65 x10e6/uL (4.3-5.7); RED CELL DISTRIBUTION WIDTH 13.6 % (11.7-14.4)
[2017-11-26] MEDS: DEXTROSE 5%/0.9% SOD CHL 1,000 ML IV SCH (07:15)
[2017-11-26 07:41] LABS: ANION GAP 14.4 mmol/L (8-16); CALCIUM 9.2 mg/dL (8.4-10.2); CREATININE, SERUM 1.79 mg/dL (0.72-1.25); MAGNESIUM 2.1 MG/DL (1.3-2.1); POTASSIUM 3.4 mmol/L (3.5-5.1)
[2017-11-26] MEDS: PANTOPRAZOLE 40 MG 10ML VIAL IV SCH (07:51)
[2017-11-26] MEDS: NIFEDIPINE CR 30 MG TAB PO SCH (07:51)
[2017-11-26] MEDS ORDERED: DEXTROSE 5%/0.45% SOD CHL 1,000 ML IV ONE (09:15)
[2017-11-26] MEDS ORDERED: POTASSIUM CHLORIDE 20 MEQ TAB CR PO ONE (09:40)
[2017-11-26 12:01] LABS: EOSINOPHILS % (MANUAL) 6 % (0-7); LYMPHOCYTES % (MANUAL) 25 % (19-48); METAMYELOCYTES % (MANUAL) 2 % (0-0); MONOCYTES % (MANUAL) 7 % (3.4-9.0); NEUTROPHILS % (MANUAL) 53 % (40-74)
[2017-11-26 12:02] LABS: ANISOCYTOSIS SLIGHT; PLATELET ESTIMATE ADEQUATE; POIKILOCYTOSIS SLIGHT; RBC MORPHOLOGY COMMENT NORMAL
[2017-11-26 12:03] LABS: PLATELET MORPHOLOGY COMMENT NORMAL
[2017-11-26] MEDS: ENOXAPARIN 30 MG/0.3 ML SYR SC SCH (16:29)
[2017-11-26] MEDS: LORAZEPAM INJ 2 MG/ML VIAL IV PRN (20:40)
[2017-11-26] MEDS: BIMATOPROST(OPTH) 2.5 ML BOTTLE OP SCH (20:40)
[2017-11-26] MEDS: HYDRALAZINE HCL 20 MG/ML VIAL IV PRN (20:41)
[2017-11-27] VITALS (11 sets, daily range): BP systolic 136–179; BP diastolic 65–85
[2017-11-27] MEDS: CEFOXITIN SOD 1 GM VIAL IV SCH ×3 (06:03→22:35)
[2017-11-27 06:58] LABS: BASOPHILS # (AUTO) 0.1 (0.0-0.1); EOSINOPHILS # (AUTO) 0.6 (0.0-0.4); EOSINOPHILS % 8.4 % (0.0-6.0); HEMATOCRIT 37.4 % (38.2-49.6); HEMOGLOBIN 12.6 g/dL (14.0-18.0); LYMPHOCYTES % 27.9 % (18.0-39.1); MEAN CORPUSCULAR HEMOGLOBIN 30.1 pg (28-32); MEAN CORPUSCULAR HGB CONC 33.7 g/dL (31-35); MEAN CORPUSCULAR VOLUME 89.5 fL (81-99); MONOCYTES # (AUTO) 0.8 (0.2-0.8); MONOCYTES % 10.3 % (4.4-11.3); NEUTROPHILS # (AUTO) 3.6 (2.1-6.9); NEUTROPHILS % 49.9 % (38.7-80.0); PLATELET COUNT 312 x10e3/uL (140-360); RED BLOOD COUNT 4.18 x10e6/uL (4.3-5.7); RED CELL DISTRIBUTION WIDTH 13.6 % (11.7-14.4)
[2017-11-27 07:33] LABS: ANION GAP 12.4 mmol/L (8-16); CALCIUM 8.4 mg/dL (8.4-10.2); CREATININE, SERUM 1.7 mg/dL (0.72-1.25); MAGNESIUM 1.7 MG/DL (1.3-2.1); POTASSIUM 3.4 mmol/L (3.5-5.1)
[2017-11-27] MEDS ORDERED: BISACODYL 10 MG SUPP PR ONE (07:40)
[2017-11-27] MEDS: PANTOPRAZOLE 40 MG 10ML VIAL IV SCH (08:50)
[2017-11-27] MEDS: NIFEDIPINE CR 30 MG TAB PO SCH (08:50)
[2017-11-27] MEDS ORDERED: POTASSIUM CHLORIDE 20 MEQ TAB CR PO ONE (09:50)
[2017-11-27] MEDS ORDERED: NIFEDIPINE CR 30 MG TAB PO ONE (10:00)
[2017-11-27] MEDS ORDERED: TRIAMTERENE-HCTZ1 EA PO (14:16)
[2017-11-27] MEDS ORDERED: FLUTICASONE PRO16 GM INH (14:16)
[2017-11-27] MEDS ORDERED: LUMIGAN2.5 M1 OU (14:16)
[2017-11-27] MEDS ORDERED: SIMVASTATIN40 MG PO (14:16)
[2017-11-27] MEDS ORDERED: FENOFIBRATE160 MG PO (14:16)
[2017-11-27] MEDS ORDERED: LISINOPRIL30 MG PO (14:16)
[2017-11-27] MEDS ORDERED: ASPIRIN325 MG PO (14:16)
[2017-11-27] MEDS ORDERED: SOD PHOSPHATE/SOD BIPHOSPHATE ENEMA 132 ML BTL PR ONE (16:45)
[2017-11-27] MEDS: ENOXAPARIN 30 MG/0.3 ML SYR SC SCH (17:23)
[2017-11-27] MEDS: BIMATOPROST(OPTH) 2.5 ML BOTTLE OP SCH (20:48)
[2017-11-27] MEDS: LORAZEPAM INJ 2 MG/ML VIAL IV PRN (20:54)
[2017-11-28] VITALS (8 sets, daily range): BP systolic 128–164; BP diastolic 63–74
[2017-11-28] MEDS: CEFOXITIN SOD 1 GM VIAL IV SCH ×3 (05:30→22:27)
[2017-11-28 07:09] LABS: BASOPHILS % 0.4 % (0.0-1.0); EOSINOPHILS # (AUTO) 0.4 (0.0-0.4); EOSINOPHILS % 4.8 % (0.0-6.0); HEMATOCRIT 35.2 % (38.2-49.6); HEMOGLOBIN 11.9 g/dL (14.0-18.0); LYMPHOCYTES # (AUTO) 1.7 (1.0-3.2); LYMPHOCYTES % 21.7 % (18.0-39.1); MEAN CORPUSCULAR HEMOGLOBIN 30.6 pg (28-32); MEAN CORPUSCULAR HGB CONC 33.8 g/dL (31-35); MEAN CORPUSCULAR VOLUME 90.5 fL (81-99); MONOCYTES # (AUTO) 0.7 (0.2-0.8); MONOCYTES % 8.5 % (4.4-11.3); NEUTROPHILS % 63.1 % (38.7-80.0); PLATELET COUNT 316 x10e3/uL (140-360); RED BLOOD COUNT 3.89 x10e6/uL (4.3-5.7); RED CELL DISTRIBUTION WIDTH 13.4 % (11.7-14.4)
[2017-11-28 07:32] LABS: ANION GAP 10.5 mmol/L (8-16); CALCIUM 8.3 mg/dL (8.4-10.2); CREATININE, SERUM 1.63 mg/dL (0.72-1.25); POTASSIUM 3.5 mmol/L (3.5-5.1)
--- NOTE | 2017-11-28 07:52 | Diagnostic Imaging Report ---
PROCEDURE:ABDOMEN COMP INCL UPR OR DECUB TECHNIQUE:Supine AP abdomen totaling 3 radiographs INDICATION:Rule out small bowel obstruction COMPARISON:Patients [facility], DX, ABDOMEN COMP INCL UPR OR DECUB, 11/22/2017, 8:41. Patients [facility], DX, ABDOMEN COMP INCL UPR OR DECUB, 11/20/2017, 8:27. FINDINGS: Continued decrease in small bowel gaseous distention relative to November 22 and November 24, 2017. Small volume of gas in the ascending and descending colon. No evidence of organomegaly or ascites. Irregular calcifications. Intact skeleton. NG tube removal. CONCLUSION: Continued decrease in small bowel distention consistent with resolving obstruction. Dictated by: Walter Hamlin M.D. on 11/28/2017 at 7:52 Electronically approved by: Walter Hamlin M.D. on 11/28/2017 at 7:52
[2017-11-28] MEDS: PANTOPRAZOLE 40 MG 10ML VIAL IV SCH (08:27)
[2017-11-28] MEDS: NIFEDIPINE CR 30 MG TAB PO SCH (08:28)
[2017-11-28] MEDS: TRIAMTERENE/HCTZ 37.5-25 MG TAB PO SCH (12:31)
[2017-11-28] MEDS: ENOXAPARIN 30 MG/0.3 ML SYR SC SCH (17:52)
[2017-11-28] MEDS: CALCIUM CARBONATE 500 MG CHEWABLE TABS PO SCH (17:52)
[2017-11-28] MEDS ORDERED: SIMVASTATIN 40 MG TAB PO SCH (21:00)
[2017-11-28] MEDS: LORAZEPAM INJ 2 MG/ML VIAL IV PRN (21:10)
[2017-11-28] MEDS: BIMATOPROST(OPTH) 2.5 ML BOTTLE OP SCH (21:10)
[2017-11-29] VITALS: BP 142/74
[2017-11-29 04:00] VITALS: BP 132/68
[2017-11-29] MEDS: CEFOXITIN SOD 1 GM VIAL IV SCH (06:07)
[2017-11-29 07:21] LABS: BASOPHILS # (AUTO) 0.1 (0.0-0.1); BASOPHILS % 0.6 % (0.0-1.0); EOSINOPHILS # (AUTO) 0.5 (0.0-0.4); EOSINOPHILS % 5.9 % (0.0-6.0); HEMATOCRIT 35.4 % (38.2-49.6); HEMOGLOBIN 11.9 g/dL (14.0-18.0); LYMPHOCYTES # (AUTO) 1.8 (1.0-3.2); LYMPHOCYTES % 21.8 % (18.0-39.1); MEAN CORPUSCULAR HEMOGLOBIN 30.3 pg (28-32); MEAN CORPUSCULAR HGB CONC 33.6 g/dL (31-35); MEAN CORPUSCULAR VOLUME 90.1 fL (81-99); MONOCYTES # (AUTO) 0.7 (0.2-0.8); MONOCYTES % 8.6 % (4.4-11.3); NEUTROPHILS # (AUTO) 4.9 (2.1-6.9); NEUTROPHILS % 61.4 % (38.7-80.0); PLATELET COUNT 313 x10e3/uL (140-360); RED BLOOD COUNT 3.93 x10e6/uL (4.3-5.7); RED CELL DISTRIBUTION WIDTH 13.2 % (11.7-14.4)
[2017-11-29 07:50] LABS: ANION GAP 13.6 mmol/L (8-16); CALCIUM 8.6 mg/dL (8.4-10.2); CREATININE, SERUM 1.67 mg/dL (0.72-1.25); POTASSIUM 3.6 mmol/L (3.5-5.1)
[2017-11-29 08:00] VITALS: BP 141/71
[2017-11-29] MEDS: NIFEDIPINE CR 30 MG TAB PO SCH (08:57)
[2017-11-29] MEDS: PANTOPRAZOLE 40 MG 10ML VIAL IV SCH (08:57)
[2017-11-29] MEDS: CALCIUM CARBONATE 500 MG CHEWABLE TABS PO SCH (08:57)
[2017-11-29] MEDS: TRIAMTERENE/HCTZ 37.5-25 MG TAB PO SCH (08:57)
[2017-11-29] MEDS ORDERED: FENOFIBRATE 145 MG TAB PO SCH (09:00)
[2017-11-29] MEDS ORDERED: ASPIRIN 325 MG TAB PO SCH (09:00)
[2017-11-29] MEDS ORDERED: NON-FORMULARY MEDICATION (Fenofibrate 160 MG) PO SCH (09:00)
[2017-11-29] MEDS ORDERED: FLUTICASONE PROPIONATE NASAL SPRAY NS SCH (09:00)
[2017-11-29] MEDS ORDERED: SIMVASTATIN 40 MG TAB PO SCH (09:00)
[2017-11-29] MEDS ORDERED: NIFEDIPINE ER30 M1 PO (09:36)
[2017-11-29] MEDS ORDERED: MIRALAX17 GM PO (09:36)
[2017-11-29 11:00] VITALS: BP 135/78
--- NOTE | 2017-11-29 17:05 | Discharge Summary ---
ADMISSION DIAGNOSES 1. Small-bowel obstruction. 2. Hypertension. 3. Chronic kidney disease 4. 4. Acute kidney injury versus chronic kidney disease 4. DISCHARGE DIAGNOSES 1. Small-bowel obstruction. 2. Hypertension. 3. Chronic kidney disease 4. 4. Acute kidney injury versus chronic kidney disease 4. 5. Hypokalemia. 6. Status post lysis of adhesions. HISTORY: Patient has a history of hypertension, hypercholesterolemia, glaucoma, previous TIA and COPD. HOSPITAL COURSE: [id number]-old gentleman presented with 2 days of abdominal pain, distention, nausea and vomiting. On admission the patient was kept n.p.o. and had an NG tube for decompression. He was getting IV fluid and serial abdominal x-rays and exams. Surgery was consulted, and the patient was put on IV Mefoxin empirically. On admission, CT of the abdomen showed distended stomach and numerous distended fluid and air-filled loops of small bowel most pronounced proximally, consistent with small-bowel obstruction. Abdominal x-rays showed findings worrisome for small-bowel obstruction. Chest x-ray showed no acute thoracic abnormality. After not having much success with small bowel clearing with rest, the patient had to have laparoscopy with lysis of adhesions with Dr. Polanco on November 22, 2017. Per Dr. Polanco, there was a single adhesive band causing the obstruction, and the bowel appeared viable. After the surgery, the patient slowly started to tolerate diet and pass gas. It took about 5 days to be able to tolerate foods at all and took about 4 days to have a bowel movement. Date of discharge, sodium was 140, potassium 3.6, creatinine of 1.67, BUN of 19, GFR of 39. WBC of 8.02, hemoglobin of 11.9, hematocrit of 35.4. UA negative. Vital signs stable. Patient was taken off his lisinopril from home and started on nifedipine. Patient will follow up with Dr. Polanco in 4 to 5 days. He is tolerating diet and had multiple bowel movements. He will follow up with primary care in 1 to 2 weeks. Dictated by: Ryann Monique NP GENESIS CERDA MD Job#: [id number]
== END 2017-11-29 10:58 | disposition home or self-care (01) | DRG 336 ==
LOC: ER 17:48 → ERHOLD 21:17 → MED/SURG2 21:26 → MED/SURG 11-24 10:34
PROVIDERS: ADMIT Internal Medicine; ATTEND Internal Medicine
PROC: 0DNU4ZZ Release Omentum, Percutaneous Endoscopic Approach (ICD-10-PCS; 2017-11-22)
PROC: 0DN84ZZ Release Small Intestine, Percutaneous Endoscopic Approach (ICD-10-PCS; principal; 2017-11-22 15:00)
DX: K56.50 Intestinal adhesions [bands], unspecified as to partial versus complete obstruction (principal); N18.4 Chronic kidney disease, stage 4 (severe); E87.0 Hyperosmolality and hypernatremia; N17.9 Acute kidney failure, unspecified; J44.9 Chronic obstructive pulmonary disease, unspecified; I12.9 Hypertensive chronic kidney disease with stage 1 through stage 4 chronic kidney disease, or unspecified chronic kidney disease; E87.6 Hypokalemia; E78.5 Hyperlipidemia, unspecified; Z86.73 Personal history of transient ischemic attack (TIA), and cerebral infarction without residual deficits
CPT/HCPCS: 36415; 71045; 74018; 74176; 80048; 80053; 81001; 82150; 82550; 82553; 83690; 83735; 83880; 84100; 84443; 84484; 85007; 85025; 85027; 93005; 96360; 96365; 99285; J0360; J0694; J1100; J1650; J2001; J2060; J2250; J2270; J2405; J3480; J7030; J7042; J7050